=== PATIENT | male | born 1995 | race Two or more races ===

== ENCOUNTER 2023-05-22 13:36 | Emergency (ER) | payer BC, OTHER ==
[~2023-05-22] VITALS: Ht 175.3 cm; Wt 81.8 kg
[2023-05-22 17:17] LABS: BASOPHILS % (AUTO) 0.2 % (0.0-2.0); EOSINOPHILS % (AUTO) 0 % (1.0-6.0); HEMATOCRIT 53.5 % (41-53); LYMPHOCYTES # (AUTO) 1.7 K/uL (1.0-4.8); LYMPHOCYTES % (AUTO) 13.5 % (22.0-44.0); MEAN CORPUSCULAR HEMOGLOBIN 29.6 pg (26.0-34.0); MEAN CORPUSCULAR HGB CONC 33.7 G/dL (31.0-37.0); MEAN CORPUSCULAR VOLUME 88 fL (80-100); MONOCYTES # (AUTO) 0.6 K/uL (0.1-1.0); MONOCYTES % (AUTO) 4.8 % (2.0-9.0); NEUTROPHILS # (AUTO) 10.1 K/uL (1.8-7.7); NEUTROPHILS % (AUTO) 81.5 % (40.0-70.0); PLATELET COUNT (AUTO) 328 K/uL (150-450); RED BLOOD CELL COUNT(AUTO) 6.08 MIL/uL (4.50-5.90); RED CELL DISTRIBUTION WIDTH 12.9 % (11.5-14.5)
[2023-05-22 17:24] LABS: ANION GAP 16 mmol/L (8-16); CALCIUM, TOTAL 10.6 mg/dL (8.8-10.5); CARBON DIOXIDE 24 mmol/L (22-29); CHLORIDE 101 mmol/L (98-107); CREATININE 0.88 mg/dL (0.60-1.30); GLOMERULAR FILTR. RATE CALC > 60 mL/min (>60); GLUCOSE,RANDOM 121 mg/dL (70-110); POTASSIUM 3.5 mmol/L (3.5-5.1); SODIUM SERUM 140 mmol/L (136-145)
[2023-05-22 17:49] VITALS: BP 135/86; PULSE 96; RESP 20; TEMP 98.6
== END 2023-05-22 18:30 | disposition home or self-care (01) ==
LOC: EMS 13:43
DX: K50.812 Crohn's disease of both small and large intestine with intestinal obstruction (principal); F41.9 Anxiety disorder, unspecified
CPT/HCPCS: 71045; 76870; 80048; 85025; 99285; 36415-L1; 36415-TC